=== PATIENT | male | born 1950 | race Caucasian/White ===

== ENCOUNTER 2016-12-05 07:30 | Outpatient (CLI) | payer OTHER, MEDICARE ==
[2016-12-05 07:46] LABS: BASOPHILS % (AUTO) 0.6 % (0.0-2.0); EOSINOPHILS # (AUTO) 0.1 K/uL (0.0-0.4); EOSINOPHILS % (AUTO) 2.5 % (0.0-4.0); HEMATOCRIT 41.5 % (36-54); HEMOGLOBIN 13.6 g/dL (14.0-18.0); LYMPHOCYTES # (AUTO) 1.7 K/uL (1.0-5.5); LYMPHOCYTES % (AUTO) 35.3 % (20.5-51.5); MEAN CORPUSCULAR HEMOGLOBIN 31 pg (27-31); MEAN CORPUSCULAR HGB CONC 33 % (32-36); MEAN CORPUSCULAR VOLUME 95 fL (79.0-98.0); MONOCYTES # (AUTO) 0.6 K/uL (0.0-1.0); MONOCYTES % (AUTO) 12.3 % (1.7-9.3); NEUTROPHILS # (AUTO) 2.5 K/uL (1.8-7.7); NEUTROPHILS % (AUTO) 49.3 % (40.0-70.0); PLATELET COUNT (AUTO) 261 K/uL (130-430); RED BLOOD CELL COUNT(AUTO) 4.37 MIL/uL (4.2-6.2); RED CELL DISTRIBUTION WIDTH 12.1 % (9.0-15.0); WHITE BLOOD COUNT (AUTO) 4.9 K/uL (4.8-10.8)
[2016-12-05 08:10] LABS: CALCIUM 8.6 mg/dL (8.4-11.0); CREATININE 1.1 mg/dL (0.55-1.30); FREE T4 (FREE THYROXINE) 1.1 ng/dL (0.6-1.6); POTASSIUM 4.5 mmol/L (3.5-5.1); THYROID STIMULATING HORMONE 5.82 uIu/mL (0.34-4.82); TOTAL BILIRUBIN 0.6 mg/dL (0.0-1.0); TOTAL PROTEIN, SERUM 7.7 g/dL (6.4-8.3)
[2016-12-25] MEDS ORDERED: IOHEXOL 100 ML IV ONE (14:20)
== END 2016-12-05 14:00 | disposition home or self-care (01) ==
LOC: SLB 07:30
PROVIDERS: ATTEND Emergency Medicine
DX: Z00.01 Encounter for general adult medical examination with abnormal findings (principal); R79.89 Other specified abnormal findings of blood chemistry; R97.20 Elevated prostate specific antigen [PSA]; E03.9 Hypothyroidism, unspecified
CPT/HCPCS: 36415; 80053; 80061; 84153; 84439; 84443-TC; 85025

== ENCOUNTER 2016-12-16 07:30 | Outpatient (CLI) | payer OTHER, MEDICARE ==
[2016-12-16 07:59] LABS: BASOPHILS % (AUTO) 0.3 % (0.0-2.0); EOSINOPHILS # (AUTO) 0.2 K/uL (0.0-0.4); EOSINOPHILS % (AUTO) 3.7 % (0.0-4.0); HEMATOCRIT 41.4 % (36-54); HEMOGLOBIN 14.1 g/dL (14.0-18.0); LYMPHOCYTES # (AUTO) 1.8 K/uL (1.0-5.5); LYMPHOCYTES % (AUTO) 30.8 % (20.5-51.5); MEAN CORPUSCULAR HEMOGLOBIN 32 pg (27-31); MEAN CORPUSCULAR HGB CONC 34 % (32-36); MEAN CORPUSCULAR VOLUME 94 fL (79.0-98.0); MONOCYTES # (AUTO) 0.6 K/uL (0.0-1.0); MONOCYTES % (AUTO) 9.9 % (1.7-9.3); NEUTROPHILS # (AUTO) 3.2 K/uL (1.8-7.7); NEUTROPHILS % (AUTO) 55.3 % (40.0-70.0); PLATELET COUNT (AUTO) 184 K/uL (130-430); RED CELL DISTRIBUTION WIDTH 12.7 % (9.0-15.0); WHITE BLOOD COUNT (AUTO) 5.8 K/uL (4.8-10.8)
[2016-12-16 08:07] LABS: ALBUMIN 4.1 g/dL (3.4-4.8); CALCIUM 8.5 mg/dL (8.4-11.0); CREATININE 1.2 mg/dL (0.55-1.30); POTASSIUM 4.2 mmol/L (3.5-5.1); TOTAL BILIRUBIN 0.8 mg/dL (0.0-1.0); TOTAL PROTEIN, SERUM 7.9 g/dL (6.4-8.3)
== END 2016-12-16 16:10 | disposition home or self-care (01) ==
LOC: SLB 07:30
PROVIDERS: ATTEND Emergency Medicine
DX: I10 Essential (primary) hypertension (principal); E78.5 Hyperlipidemia, unspecified
CPT/HCPCS: 36415; 80053; 80061; 85025

== ENCOUNTER 2016-12-25 13:47 | Outpatient (CLI) | payer OTHER, MEDICARE | END 2016-12-25 17:52 | disposition home or self-care (01) | LOC: SCT 13:47 | PROVIDERS: ATTEND Emergency Medicine | DX: N28.1 Cyst of kidney, acquired (principal); R31.29 Other microscopic hematuria; M47.897 Other spondylosis, lumbosacral region; K57.30 Diverticulosis of large intestine without perforation or abscess without bleeding; K40.90 Unilateral inguinal hernia, without obstruction or gangrene, not specified as recurrent ==

== ENCOUNTER 2017-08-18 08:46 | Outpatient (CLI) | payer OTHER, MEDICARE ==
[2017-08-18 09:56] LABS: FREE T4 (FREE THYROXINE) 1.1 ng/dl (0.8-1.5); THYROID STIMULATING HORMONE 3.59 uIu/mL (0.36-3.74)
[2017-08-18 15:45] LABS: CALCIUM 8.9 mg/dL (8.4-11.0); CREATININE 0.89 mg/dL (0.55-1.30); POTASSIUM 4.2 mmol/L (3.5-5.1); TOTAL BILIRUBIN 0.4 mg/dL (0.0-1.0)
[2017-08-19 07:09] LABS: % FREE PSA 5.7 % (.); FREE PSA 0.08 ng/mL; PROSTATE SPECIFIC AG TOTAL 1.4 ng/mL (0.0-4.0)
== END 2017-08-18 18:51 | disposition home or self-care (01) ==
LOC: SLB 08:46
PROVIDERS: ATTEND Emergency Medicine
DX: C61 Malignant neoplasm of prostate (principal); E89.0 Postprocedural hypothyroidism
CPT/HCPCS: 36415; 80053; 84153; 84439; 84443-TC

== ENCOUNTER 2017-11-27 12:00 | Outpatient (CLI) | payer OTHER, MEDICARE ==
[2017-11-27 12:39] LABS: ALBUMIN 4.1 g/dL (3.4-4.8); CALCIUM 8.6 mg/dL (8.4-11.0); CREATININE 1.02 mg/dL (0.55-1.30); POTASSIUM 4.4 mmol/L (3.5-5.1); THYROID STIMULATING HORMONE 0.38 uIu/mL (0.34-4.82); TOTAL BILIRUBIN 0.8 mg/dL (0.0-1.0)
[2017-11-27 12:49] LABS: BASOPHILS % (AUTO) 0.4 % (0.0-2.0); EOSINOPHILS # (AUTO) 0.1 K/uL (0.0-0.4); EOSINOPHILS % (AUTO) 2.5 % (0.0-4.0); HEMATOCRIT 40.9 % (36-54); LYMPHOCYTES # (AUTO) 1.1 K/uL (1.0-5.5); LYMPHOCYTES % (AUTO) 21.5 % (20.5-51.5); MEAN CORPUSCULAR HEMOGLOBIN 32 pg (27-31); MEAN CORPUSCULAR HGB CONC 34 % (32-36); MEAN CORPUSCULAR VOLUME 95 fL (79.0-98.0); MONOCYTES # (AUTO) 0.5 K/uL (0.0-1.0); MONOCYTES % (AUTO) 9.2 % (1.7-9.3); NEUTROPHILS # (AUTO) 3.6 K/uL (1.8-7.7); NEUTROPHILS % (AUTO) 66.4 % (40.0-70.0); PLATELET COUNT (AUTO) 192 K/uL (130-430); RED BLOOD CELL COUNT(AUTO) 4.32 MIL/uL (4.2-6.2); RED CELL DISTRIBUTION WIDTH 11.7 % (9.0-15.0); WHITE BLOOD COUNT (AUTO) 5.3 K/uL (4.8-10.8)
== END 2017-11-27 14:00 | disposition home or self-care (01) ==
LOC: SLB 12:00
PROVIDERS: ATTEND Emergency Medicine
DX: I10 Essential (primary) hypertension (principal)
CPT/HCPCS: 36415; 80053; 80061; 84443-TC; 85025